=== PATIENT | female | born 1965 | race Caucasian/White ===

== ENCOUNTER → 2022-09-02 | Outpatient (CLI) | payer OTHER, SELFPAY ==
--- NOTE | 2022-09-02 | CYSPIN_PTH ---
PATIENT: DESHAUN VERGARA [facility] U[facility][id number] AGE/SX: 57/F ROOM: RE09/02/[address]: Dr. Luiz Pena MD : 1965 BED: DIS: 09/02/2022 SPEC #: [id number] RECD: 09/03/22 08:46 STATUS: GABY REQ #: [id number] CHARLES: 09/02/22 00:[address]: Luiz Pena DEPT: CYTOLOGY RECD BY: Maximo Love ENTERED: 09/03/22 08:46 SP TYPE: CYSPIN FL OTHR DR: No Primary Care Phys Tissues: Urine Procedures: Pap Stain (control) Special Stain Group II Cytospin Fluid HEADER OPERATION: Not noted PRE-OP DIAGNOSIS: Microscopic hematuria TISSUE SUBMITTED: Urine for cytology DIAGNOSIS CYTOLOGY Urine for cytology (cytospin): Negative for malignant cells. See comment. AM:oli 09/03/2022 COMMENT The specimen primarily contains squamous epithelial cells. Clinical correlation is suggested. CYTOLOGY STUDY Slides are reviewed. CYTOLOGY GROSS Received is 45 ml of gold cloudy fluid labeled with the patient's name and and designated per the requisition as urine. Submitted for cytology preparation. / oli 09/02/2022 TC:5 CPT: 52208
[2022-09-02 17:51] LABS: Cytology, Body Fluid / CSF SEE PATHOLOGY REPORT
== END | disposition home or self-care (01) ==
PROVIDERS: Referring Provider Urology; Visit Provider Urology
DX: R31.21 Asymptomatic microscopic hematuria (principal)
CPT/HCPCS: 88108; 88313